=== PATIENT | male | born 1950 | race Asian ===

== ENCOUNTER 2018-10-26 08:37 | Emergency (ER) | payer OTHER ==
[~2018-10-26] VITALS: Ht 175.3 cm; Wt 89.8 kg
[2018-10-26 08:52] VITALS: TEMP 97.8
[2018-10-26 09:15] LABS: PLATELET COUNT 199 K/uL (142-355)
[2018-10-26 09:23] LABS: POTASSIUM 4.1 mmol/L (3.6-5.2)
[2018-10-26 12:22] VITALS: BP 117/77
== END 2018-10-26 12:23 | disposition home or self-care (01) ==
LOC: ED 08:37
PROVIDERS: Emergency Medicine
DX: M54.9 Dorsalgia, unspecified (principal); N40.0 Benign prostatic hyperplasia without lower urinary tract symptoms; N19 Unspecified kidney failure; I10 Essential (primary) hypertension
CPT/HCPCS: 36415; 80053; 81000; 82150; 83690; 85027; 96374; 96375; 99284; J1885; J2175